=== PATIENT | male | born 1945 | race Caucasian/White ===

== ENCOUNTER 2021-02-12 08:06 | Inpatient (IN) | payer MEDICARE, OTHER ==
[2021-02-07 15:13] LABS: HEMOGLOBIN A1C 6.3 % (4.5-6.2)
[2021-02-07 15:18] LABS: PRE OP INR 1.1 INR; PRE OP PROTIME 11.5 SECONDS (9.0-12.0)
[2021-02-07 15:19] LABS: ALBUMIN 3.8 G/DL (3.4-5.0); ALKALINE PHOSPHATASE 69 IU/L (46-116); BLOOD UREA NITROGEN 19 MG/DL (7-18); BUN/CREATININE RATIO 14.3 (5.4-32.0); CALCIUM 8.8 MG/DL (8.5-10.1); CHLORIDE 103 MMOL/L (99-107); CREATININE 1.33 MG/DL (0.60-1.10); PRE OP ALT 34 U/L (30-65); PRE OP ANION GAP 11 (8-16); PRE OP AST 21 U/L (10-37); PRE OP BILIRUB, TOTAL 0.8 MG/DL (0.0-1.0); PRE OP GLUCOSE 136 MG/DL (70-104); PRE OP POTASSIUM 4.1 MMOL/L (3.4-5.1); PRE OP SODIUM 140 MMOL/L (135-145); TOTAL CARBON DIOXIDE 26.2 MMOL/L (24-32); TOTAL PROTEIN 7.5 G/DL (6.4-8.2); eGFR 52 ML/MIN
[2021-02-07 15:24] LABS: BASOPHILS # (AUTO) 0.1 X10'3 (0-0.2); BASOPHILS % (AUTO) 1.3 % (0-1); EOSINOPHILS # (AUTO) 0.1 X10'3 (0-0.9); EOSINOPHILS % (AUTO) 1.7 % (0-6); LYMPHOCYTES # (AUTO) 1.2 X10'3 (1.1-4.8); LYMPHOCYTES % (AUTO) 19.8 % (21-51); MEAN CORPUSCULAR HEMOGLOBIN 30.9 PG (27.0-31.0); MEAN CORPUSCULAR HGB CONC 33.9 g/dL (33.0-36.5); MEAN PLATELET VOLUME 9.9 FL (7.4-10.4); MONOCYTES # (AUTO) 0.6 X10'3 (0-0.9); MONOCYTES % (AUTO) 9.9 % (2-12); NEUTROPHILS # (AUTO) 4.1 X10'3 (1.8-7.7); NEUTROPHILS % (AUTO) 67.3 % (42-75); PRE OP HEMOGLOBIN 15.9 g/dL (14.0-17.9); PRE OP PLATELET COUNT 182 X10'3 (140-440); RED BLOOD COUNT 5.17 X10'6 (4.70-6.10); RED CELL DISTRIBUTION WIDTH 13.4 % (11.5-14.5)
[2021-02-12] VITALS (16 sets, daily range): BP systolic 111–160; BP diastolic 65–97
[~2021-02-12] VITALS: Ht 188 cm; Wt 87.4 kg
[~2021-02-12 08:06] MED LIST: APIX5TAB3 PO; ATOR20TA66 PO; FLEC100T35 PO; LOSA100T57 PO; OMEP40CA13 PO; cefazolin/dext.iso 2gm/100ml IV ONE; famotidine 20mg tablet PO ONE; ringers solution, lacted 1,000 ML IV SCH; tranexamic acid 650mg tablet PO ONE; vancomycin 1,500 MG in NS 300ml IV soln IV ONE
[2021-02-12] MEDS ORDERED: ROPIVAcaine 0.5% (5mg/ml) 30ml vial ONE ×2 (11:08→14:13)
[2021-02-12] MEDS ORDERED: ketorolac trometh. 30mg/ml inj. ONE (11:08)
[2021-02-12] MEDS ORDERED: fentaNYL/PF 50MCG/1 ML 2ML syringe ONE (11:16)
[2021-02-12] MEDS ORDERED: midazolam 1 mg/ML 2ml injection ONE (11:17)
[2021-02-12] MEDS ORDERED: HYDROmorphone/PF 0.2 MG/ML SYRINGE IV PRN (12:35)
[2021-02-12] MEDS ORDERED: ROPIVAcaine 0.2% (10 MG/5 ML) BOLUS INJECTION INTERSCALE PRN (12:35)
[2021-02-12] MEDS ORDERED: ondansetron/PF 4mg/2ml inj IV PRN ×2 (12:35→14:30)
[2021-02-12] MEDS ORDERED: ringers solution, lacted 1,000 ML IV SCH (12:35)
[2021-02-12] MEDS ORDERED: morphine 2 MG/ML inj. syringe IV PRN (12:35)
[2021-02-12] MEDS ORDERED: ROPIVAcaine 0.2%/PF PUMP/bolus 545 ML INTERSCALE SCH (12:35)
[2021-02-12] MEDS ORDERED: sevoflurane 250ml liquid IH ONE (12:51)
--- NOTE | 2021-02-12 14:00 | NUR ---
Received from OR via , accompanied by Anesthesiologist DR AVELAR and report given by Anesthesiolgist. AWAKENS TO VOICE. VITALS STABLE. DRESSING DI. YANELIS PAIN. RUE IN A SIMPLE SLING. FINGERS WARM AND PINK.
[2021-02-12] MEDS ORDERED: propofol inj 20 ML IV ONE (14:13)
[2021-02-12] MEDS ORDERED: dexamethasone sod phosphate 4mg/ml inj. ONE (14:13)
[2021-02-12] MEDS ORDERED: ondansetron/PF 4mg/2ml inj ONE (14:13)
[2021-02-12] MEDS ORDERED: acetaminophen 1,000mg/100ml IV 100 ML IV ONE (14:13)
[2021-02-12] MEDS ORDERED: LIDOcaine 1%/PF 5ML 10 MG/ML VIAL ONE (14:13)
[2021-02-12] MEDS ORDERED: acetaminophen 325mg tablet PO PRN (14:30)
[2021-02-12] MEDS ORDERED: magnesium hydroxide 30ml (MOM) UD suspension PO PRN (14:30)
[2021-02-12] MEDS ORDERED: HYDROmorphone 1 mg/ml syringe IV PRN (14:30)
[2021-02-12] MEDS ORDERED: HYDROmorphone inj. 0.5 MG/0.5 ML DISP.SYRIN IV PRN (14:30)
[2021-02-12] MEDS ORDERED: diphenhydrAMINE 25mg capsule PO PRN ×2 (14:30)
[2021-02-12] MEDS ORDERED: oxyCODONE IR 5mg (immed. release) tablet PO PRN ×2 (14:30)
[2021-02-12] MEDS ORDERED: bisacodyl 10mg suppository rectal RC PRN (14:30)
--- NOTE | 2021-02-12 15:30 | NUR ---
Report called to receiving nurse. Transferred via BED Belongings . Special Issues communicated to receiving nurse. AWAKE AND ORIENTED. VITALS STABLE. DRESSING DI. YANELIS PAIN. TO ORTHO RM 4013N AT THIS TIME.
[2021-02-12] MEDS: potassium cl 20mEq in 1/2 NS 1,000 ML IV SCH ×2 (16:45→22:30)
[2021-02-12] MEDS: ceFAZolin/D5W- 1GM premix 50 ML IV SCH ×2 (16:45→23:48)
[2021-02-12] MEDS ORDERED: vancomycin/NS 1 GM ADD-VANTAGE 250 ML IV SCH (20:00)
[2021-02-12] MEDS: apixaban 5mg tablet PO SCH (20:28)
[2021-02-12] MEDS: acetaminophen 325mg tablet PO SCH (20:28)
[2021-02-12] MEDS: flecainide 50mg tablet PO SCH (20:34)
[2021-02-12] MEDS ORDERED: losartan 50mg tablet PO SCH (21:00)
[2021-02-12] MEDS ORDERED: sennosides 8.6mg tablet PO SCH (21:00)
[2021-02-13 02:00] VITALS: BP 119/73
[2021-02-13] MEDS: acetaminophen 325mg tablet PO SCH ×2 (02:05→07:05)
[2021-02-13] MEDS: potassium cl 20mEq in 1/2 NS 1,000 ML IV SCH (03:53)
[2021-02-13 06:00] VITALS: BP 113/66
--- NOTE | 2021-02-13 06:46 | NUR ---
Patient in room ORTHO 4014. I have received report from MAGGY WONG and had the opportunity to ask questions and assume patient care.
[2021-02-13 07:01] LABS: BASOPHILS % (AUTO) 0.3 % (0-1); EOSINOPHILS % (AUTO) 0 % (0-6); HEMATOCRIT 39.8 % (42.0-52.0); HEMOGLOBIN 13.5 g/dl (14.0-17.9); LYMPHOCYTES # (AUTO) 0.9 X10'3 (1.1-4.8); LYMPHOCYTES % (AUTO) 8.7 % (21-51); MEAN CORPUSCULAR HEMOGLOBIN 30.9 PG (27.0-31.0); MEAN CORPUSCULAR HGB CONC 33.9 g/dL (33.0-36.5); MEAN CORPUSCULAR VOLUME 91.1 FL (78-98); MEAN PLATELET VOLUME 9.7 FL (7.4-10.4); MONOCYTES # (AUTO) 0.9 X10'3 (0-0.9); MONOCYTES % (AUTO) 9.4 % (2-12); NEUTROPHILS # (AUTO) 8.1 X10'3 (1.8-7.7); NEUTROPHILS % (AUTO) 81.6 % (42-75); PLATELET COUNT 150 X10'3 (140-440); RED BLOOD COUNT 4.37 X10'6 (4.70-6.10); RED CELL DISTRIBUTION WIDTH 13.1 % (11.5-14.5)
[2021-02-13] MEDS: apixaban 5mg tablet PO SCH (07:05)
[2021-02-13] MEDS: flecainide 50mg tablet PO SCH (07:05)
[2021-02-13 07:28] LABS: ANION GAP 9 (8-16); CHLORIDE 106 MMOL/L (99-107); POTASSIUM 4.5 MMOL/L (3.5-5.1); SODIUM 139 MMOL/L (135-145); TOTAL CARBON DIOXIDE 23.6 MMOL/L (24-32)
[2021-02-13 08:00] VITALS: BP 149/76
[2021-02-13] MEDS ORDERED: atorvastatin 10mg tablet PO SCH (08:00)
--- NOTE | 2021-02-13 09:53 | NUR ---
PT DISCHARGED IN STABLE CONDITION. LEFT FACILITY IN PRIVATE VEHICLE WITH . IV DC CANULA INTACT. FOLLOW UP INSTRUCTIONS GIVEN, ALL QUESTIONS ANSWERED. ON Q BALL IN PLACE, EDUCATION GIVEN. ALL BELONGINGS IN HAND. Addendum: 02/13/21 at 0995 by Landy Rutledge RN Amended: Links added.
[2021-02-14] MEDS ORDERED: pantoprazole 40mg Tablet.DR PO SCH (08:00)
[2021-02-14] MEDS ORDERED: acetaminophen 325mg tablet PO PRN (14:30)
--- NOTE | 2021-02-15 11:40 | NUR ---
CASE MANAGEMENT DISCHARGE FOLLOW UP: Spoke with pt via telephone. Reports he thinks that he is "doing pretty good," states pain level is okay; denies CP, SOB, fever/chills, s/sx of infection. Verbalizes understanding of s/sx requiring further evaluation/emergent assistance. Verbalizes understanding of new and current medications, states alternating tylenol and Planada, advised pt to be careful to not exceed 4g Tylenol in 24 hour period and that Planada contains Tylenol, pt verbalizes understanding, thanks this nurse for reminding him, states that he was told this when he discharged. Verbalizes compliance with MD discharge instructions. Verbalizes understanding of the importance in making/keeping follow-up appointments, has postop appointment and PT scheduled. Upon enquiry, pt states that the hospital staff treated him very well. States only complaint was that dinner was not ordered for him the night of his surgery, but that he did talk to his doctor about it and the situation was remedied with a sandwich. States no further questions/concerns at this time.
== END 2021-02-13 09:50 | disposition home or self-care (01) | DRG 483 ==
LOC: UNDOADMIN 08:06 → PAS IN 08:06 → ORTHO 4S 16:00 → PAS IN 16:00
PROVIDERS: ADMIT Orthopaedic Surgery; ATTEND Orthopaedic Surgery
PROC: 0LS30ZZ Reposition Right Upper Arm Tendon, Open Approach (ICD-10-PCS; 2021-02-12)
PROC: 3E0T3BZ Introduction of Anesthetic Agent into Peripheral Nerves and Plexi, Percutaneous Approach (ICD-10-PCS; 2021-02-12)
PROC: 0RRJ00Z Replacement of Right Shoulder Joint with Reverse Ball and Socket Synthetic Substitute, Open Approach (ICD-10-PCS; principal; 2021-02-12 12:51)
DX: M19.011 Primary osteoarthritis, right shoulder (principal); M65.811 Other synovitis and tenosynovitis, right shoulder; M75.111 Incomplete rotator cuff tear or rupture of right shoulder, not specified as traumatic; M75.21 Bicipital tendinitis, right shoulder; Z79.899 Other long term (current) drug therapy
CPT/HCPCS: 36415; 80051; 80053; 82948; 83036; 85025; 85610; 85730; 87081; 97110; 97161; 97530; G0378; J0131; J0690; J1100; J1885; J2250; J2405; J2704; J2795; J3010; J3370; J3480; J7040; J7120